=== PATIENT | male | born 1970 | race Caucasian/White ===

== ENCOUNTER 2016-05-31 08:10 | Day surgery (SDC) | payer BC, OTHER ==
[2016-05-30 12:57] VITALS: BMI 33.9
[2016-05-31] MEDS ORDERED: MIDAZOLAM HCL 2 MG/2 ML SINGLE DOSE VIAL ONE (10:12)
[2016-05-31] MEDS ORDERED: PROPOFOL 20 ML ONE ×2 (10:13)
[2016-05-31] MEDS ORDERED: BUPIVACAINE HCL 0.25% 125 MG/50 ML VIAL ONE (10:36)
[2016-05-31] MEDS ORDERED: ceFAZolin SODIUM 1 GM VIAL ONE (10:36)
[2016-05-31] MEDS ORDERED: LIDOCAINE HCL/PF 2% SDV 5ML VIAL ONE ×2 (10:36→10:37)
[2016-05-31] MEDS ORDERED: KETOROLAC TROMETHAMINE 30 MG/1 ML VIAL ONE (10:36)
[2016-05-31] MEDS ORDERED: ONDANSETRON 4 MG/2 ML VIAL ONE (12:10)
[2016-05-31] MEDS ORDERED: ONDANSETRON 4 MG/2 ML VIAL IVPUSH PRN (12:40)
[2016-05-31] MEDS ORDERED: oxyCODONE HCL 5 MG TABLET PO PRN (12:41)
[2016-05-31] MEDS ORDERED: PROMETHAZINE HCL 25 MG/1 ML VIAL IVPUSH PRN (12:41)
[2016-05-31] MEDS ORDERED: LACTATED RINGERS SOLUTION 1,000 ML IV SCH (12:45)
[2016-05-31 14:03] VITALS: PULSE 65; TEMP 98
[2016-05-31] MEDS ORDERED: oxyCODONE HCL 5 MG TABLET ONE (14:21)
[2016-05-31] MEDS ORDERED: ONDANSETRON 4 MG/2 ML VIAL IVPUSH ONE (14:25)
[2016-05-31 16:51] VITALS: BP 122/65
--- NOTE | 2016-06-03 19:18 | OP ---
DATE OF OPERATION: 05/31/2016 SURGEON: Lanre Ochoa MD NEUROUROLOGIST: ANGEL Valdez PREOPERATIVE DIAGNOSIS: Left elbow distal biceps tear/rupture. POSTOPERATIVE DIAGNOSIS: Left elbow distal biceps tear/rupture. PROCEDURE: Repair of left elbow biceps tendon. FINDINGS: Avulsed biceps tendon tear, left elbow, with anterior scar tissue. PROCEDURE: Informed consent was obtained, he was taken to operating room where the left upper extremity was prepped and draped in sterile fashion. Tourniquet was placed on the upper arm and inflated to 250 mmHg. A horizontal incision was made 1 cm distal to the anterior elbow crease. This was taken down through the fascial layer, where the biceps tendon was noted to be avulsed off the tubercle. There were minor small strands noted along the posterior portion. The tendon was then prepared, removing the necrotic portion at the distal portion. Two number 2 FiberWire sutures were placed in a Krackow fashion in an interlocking ToggleLoc fixation device. Radial tuberosity and neck was identified and cleared of soft tissue. ToggleLoc system including placement of a FiberWire followed by 9-mm and 7-mm reamer. ToggleLoc was then placed through to the anterior cortex to the posterior and turned 90 degrees, locking the position. The biceps tendon was then tightened into the central reamed area of the bone. This was then secured and locked into place. It was noted to have good tension, stability, and strength across the biceps. The tourniquet was then released. There was no evidence of arterial bleeding. The wound was then irrigated with copious amounts of irrigation, closed with 2-0 Vicryl and 3-0 nylon. Sterile dressing was placed. The patient was transferred to the recovery without complication. Posterior splint was placed as well. LANRE OCHOA M.D. [id number]
== END 2016-05-31 15:00 | disposition home or self-care (01) ==
LOC: FASU 08:10
PROVIDERS: ATTEND Orthopaedic Surgery
PROC: 0LM40ZZ Reattachment of Left Upper Arm Tendon, Open Approach (ICD-10-PCS; principal; 2016-05-31 11:06)
DX: S46.212A Strain of muscle, fascia and tendon of other parts of biceps, left arm, initial encounter (principal); X58.XXXA Exposure to other specified factors, initial encounter; Y93.9 Activity, unspecified; Y92.9 Unspecified place or not applicable
CPT/HCPCS: 94760